=== PATIENT | female | born 1995 | race Caucasian/White ===

== ENCOUNTER 2022-10-18 08:57 | Outpatient (CLI) | payer OTHER, SELFPAY ==
[2022-10-24 04:30] LABS: FSH 3.5 mIU/mL (***); Prolactin 9.6 ng/mL (***)
[2022-10-24 09:37] LABS: Testosterone Total 32 ng/dL (2-45)
== END 2022-10-18 08:58 | disposition home or self-care (01) ==
LOC: ANHLAB 08:58
PROVIDERS: Visit Provider Student in an Organized Health Care Education/Training Program
DX: N91.1 Secondary amenorrhea (principal)
CPT/HCPCS: 36415; 83001; 84146; 84403; 84443

== ENCOUNTER 2023-04-12 10:44 | Outpatient (CLI) | payer OTHER, SELFPAY ==
[2023-04-12 11:31] LABS: Basophils Percent Auto 0.6 % (0.2-1.2); Eosinophils Absolute Auto 0.1 K/mm3 (0-0.3); Eosinophils Percent Auto 0.9 % (0-4.4); Hematocrit 42.3 % (37.0-47.0); Hemoglobin 14.5 g/dL (12.0-15.0); Immature Granulocyte Absolute 0.01 K/mm3 (0.00-0.031); Immature Granulocyte Percent A 0.2 % (0-0.5); Lymphocytes Percent Auto 24.5 % (18.3-44.2); Mean Corpuscular HGB Conc 34.3 g/dl (32-36); Mean Corpuscular Hemoglobin 30.9 pg (26-34); Mean Platelet Volume 10.9 fl (7.4-10.4); Monocytes Absolute Auto 0.3 K/mm3 (0.1-0.6); Monocytes Percent Auto 4.3 % (2.6-8.5); Neutrophils Absolute Auto 4.5 K/mm3 (1.3-6.7); Neutrophils Percent Auto 69.5 % (45.5-73.1); Platelet Count Result 210 k/mm3 (150-375); Red Cell Distribution Width 11.9 % (11.5-14.5); White Blood Count 6.5 K/mm3 (4.5-10.0)
[2023-04-12 12:03] LABS: Beta HCG Quantitative 222.86 mIU/ML
[2023-04-12 12:27] LABS: HIV 1/2 Ab P24 Ag Result Negative (Negative)
[2023-04-12 12:38] LABS: Hepatitis B Surface Antigen Negative (Negative); Rubella IgG Antibody 15.5 IU/ML
[2023-04-13 06:41] LABS: Rapid Plasma Reagin Non-Reactive (NonReactive)
[2023-04-18 18:57] LABS: CMV IgG Antibody <0.60 U/mL (<0.60)
== END 2023-04-12 10:45 | disposition home or self-care (01) ==
PROVIDERS: Visit Provider Student in an Organized Health Care Education/Training Program
DX: N94.89 Other specified conditions associated with female genital organs and menstrual cycle (principal)
CPT/HCPCS: 36415; 84702; 85025; 86592; 86644; 86703; 86747; 86762; 86787; 86850; 86900; 86901; 87086; 87340; G0432

== ENCOUNTER 2023-09-27 07:40 | Outpatient (CLI) | payer OTHER, SELFPAY ==
[2023-09-27 09:05] LABS: Hematocrit 38.5 % (37.0-47.0); Hemoglobin 12.5 g/dL (12.0-15.0); Mean Corpuscular HGB Conc 32.5 g/dl (32-36); Mean Corpuscular Hemoglobin 30.8 pg (26-34); Mean Corpuscular Volume 94.8 fl (80-100); Mean Platelet Volume 10.8 fl (7.4-10.4); Platelet Count Result 160 k/mm3 (150-375); Red Blood Count 4.06 M/mm3 (4.2-5.4); White Blood Count 9.7 K/mm3 (4.5-10.0)
[2023-09-27 09:08] LABS: Glucose 1 Hour PP 50gm Dose 157 mg/dL
[2023-09-27 09:51] LABS: HIV 1/2 Ab P24 Ag Result Negative (Negative)
== END 2023-09-27 07:41 | disposition home or self-care (01) ==
LOC: ANHLAB 07:42
PROVIDERS: PCP Family Medicine; Visit Provider Student in an Organized Health Care Education/Training Program
DX: Z34.90 Encounter for supervision of normal pregnancy, unspecified, unspecified trimester (principal)
CPT/HCPCS: 36415; 82947; 85027; 86703; G0432

== ENCOUNTER → 2023-11-08 15:20 | Outpatient (CLI) | payer OTHER, SELFPAY ==
--- NOTE | ~2023-11-08 | US_ITS ---
EXAMINATION: US OB follow up DATE: 11/08/2023 15:46 INDICATION: Encounter for supervision of normal . TECHNIQUE: Real-time ultrasound of the pelvis was performed. COMPARISON: Ultrasound 07/31/2023, 05/01/2023 FINDINGS: There is a single living fetus in vertex presentation. The placenta is anterior, greater than 5 cm f rom the cervix. heart rate is 131 beats per minute (bpm). The amniotic fluid index is 10.5 cm, which is normal. The following biometric data were obtained: Biparietal diameter (BPD): 8.6 cm; head circumference (HC): 31.4 cm; abdominal circumference (AC): 31 .2 cm; femur length (FL): 6.8 cm. These measurements are concordant. Estimated weight is 2593 g +/- 389 g, which correlates with the 76th percentile when 12/20/23 is used as estimated date of delivery. As single measurements, these parameters are each equal to the following estimated gestational ages: BPD: 34 weeks 4 days. HC: 35 weeks 1 days. AC: 35 weeks 1 days. FL: 35 weeks 1 days. estimated gestational age based solely on measurements from this exam is 35 weeks 0 days +/- 2 weeks 3 days. IMPRESSION: 1. Single living fetus in vertex presentation. 2. Estimated weight is 2593 g +/- 389 g, which correlates with the 76th percentile when 4 is used as estimated date of delivery. Reviewed, dictated and finalized at location A. [employer] IMPRESSION: 1. Single living fetus in vertex presentation. 2. Estimated weight is 2593 g +/- 389 g, which correlates with the 76th percentile when 12/20/23 is used as estimated date of delivery.
== END ==
PROVIDERS: PCP Family Medicine; Visit Provider Student in an Organized Health Care Education/Training Program
DX: Z34.90 Encounter for supervision of normal pregnancy, unspecified, unspecified trimester (principal)
CPT/HCPCS: 76816

== ENCOUNTER 2023-12-23 09:25 | Outpatient (RCR) | payer OTHER, SELFPAY ==
[2023-12-20 10:06] VITALS: BP 133/86; PULSE 85
--- NOTE | 2023-12-20 11:24 | PC.NURSE ---
Dr. Parish notified of NST, VS, and ultrasound results. Okay to discharge
--- NOTE | ~2023-12-23 | US_ITS ---
EXAMINATION: US OB follow up w [facility] DATE: 12/20/2023 11:14 INDICATION: Postdates. TECHNIQUE: Real-time pelvic ultrasound was performed. COMPARISON: Ultrasound 11/08/2023 FINDINGS: There is a single living fetus in vertex presentation. The placenta is anterior. heart rate is 128 beats per minute (bpm). The deepest vertical pocket is 5.8 cm. Biophysical profile performed by the technologist: breathing (30 sec sustained breathing in 30 minutes): 2 out of 2 movement (3 gross body movements in 30 minutes): 2 out of 2 tone (one episode of nxrtjsm-[id number]-nczccpq limb movement): 2 out of 2 Amniotic fluid pocket (2 cm): 2 out of 2 Total score: 8 out of 8 IMPRESSION: 1. Single living fetus in vertex presentation. 2. Biophysical profile 8 out of 8. Reviewed, dictated and finalized at location A.
[2023-12-23 10:05] VITALS: BP 139/89; PULSE 88
--- NOTE | 2023-12-23 10:07 | PC.NURSE ---
Dr Parish informed of elevated BP's, Orders for lab work.
[2023-12-23 10:25] LABS: Basophils Percent Auto 0.4 % (0.2-1.2); Eosinophils Percent Auto 0.4 % (0-4.4); Hemoglobin 12.9 g/dL (12.0-15.0); Immature Granulocyte Absolute 0.07 K/mm3 (0.00-0.031); Immature Granulocyte Percent A 0.7 % (0-0.5); Lymphocytes Absolute Auto 1.15 K/mm3 (0.9-3.2); Lymphocytes Percent Auto 11.4 % (18.3-44.2); Mean Corpuscular HGB Conc 33.1 g/dl (32-36); Mean Corpuscular Hemoglobin 29.7 pg (26-34); Mean Corpuscular Volume 89.7 fl (80-100); Monocytes Absolute Auto 0.4 K/mm3 (0.1-0.6); Monocytes Percent Auto 3.6 % (2.6-8.5); Neutrophils Absolute Auto 8.5 K/mm3 (1.3-6.7); Neutrophils Percent Auto 83.5 % (45.5-73.1); Platelet Count Result 160 k/mm3 (150-375); Red Blood Count 4.35 M/mm3 (4.2-5.4); Red Cell Distribution Width 13.1 % (11.5-14.5); White Blood Count 10.1 K/mm3 (4.5-10.0)
[2023-12-23 10:32] LABS: Appearance Urine Clear (Clear); Bacteria Urine Rare /hpf; Bilirubin Urine Negative (Negative); Blood Urine Negative (Negative); Color Urine Yellow (Yellow); Glucose Urine UA Negative (Negative); Ketones Urine Negative (Negative); Leukocyte Esterase Ur 2+ LEU/UL (Negative); Nitrate Urine Negative (Negative); Non Pathogenic Casts 0-2; Protein Urine Negative (Negative); RBC Urine 0-2 /hpf (0-2); Specific Grav Ur 1.005 (1.001-1.035); Squamous Epithelial Cell Urine Few /hpf (Few); Urobilinogen Urine 0.2 mg/dL (<2.0); pH Urine 6.5 (5.0-9.0)
[2023-12-23 10:37] LABS: Alanine Aminotransferase 16 U/L (6-35); Albumin Level 3.8 g/dL (3.5-5.1); Alkaline Phosphatase 146 U/L (38-126); Anion Gap 5 mmol/L (4-12); Aspartate Amino Transferase 25 U/L (14-36); Bilirubin,Total 1.2 mg/dL (0.2-1.3); Blood Urea Nitrogen 11 mg/dL (7-17); Calcium 8.9 mg/dL (8.4-10.2); Carbon Dioxide 23 mmol/L (22-30); Chloride 105 mmol/L (98-107); Estimated Glomerular Filt Rate > 60; Glucose 94 mg/dL (65-110); Sodium 133 mmol/L (137-145); Uric Acid 3.9 mg/dL (2.5-7.5)
[2023-12-23 10:41] LABS: Creatinine Urine 24.9 mg/dL; Total Protein Urine Random 13 mg/dL; Ur Ttl Prot Creatinine Ratio 0.52 mg/mg (0-0.20)
--- NOTE | 2023-12-23 10:45 | PC.NURSE ---
Dr Parish informed of [facility] labs, Orders for discharge and set up IOL for tomorrow 12/23/23 at 1600.
[2023-12-23 11:02] LABS: Add Urine Microscopic? YES
== END 2023-12-23 10:53 | disposition home or self-care (01) ==
LOC: ANHOBOP 09:25
PROVIDERS: PCP Family Medicine; Visit Provider Student in an Organized Health Care Education/Training Program
DX: N94.89 Other specified conditions associated with female genital organs and menstrual cycle (principal)
CPT/HCPCS: 36415; 59025; 76816; 76819; 80053; 81001; 82570; 84156; 84550; 85025; 87086

== ENCOUNTER 2023-12-24 16:00 | Inpatient (IN) | payer OTHER, SELFPAY ==
[2023-12-24] VITALS (8 sets, daily range): BP systolic 132–141; BP diastolic 82–92; PULSE 76–84; TEMP 36.6; BMI 21.9
[2023-12-24 17:14] LABS: Basophils Percent Auto 0.2 % (0.2-1.2); Eosinophils Percent Auto 0.2 % (0-4.4); Hematocrit 36.3 % (37.0-47.0); Hemoglobin 12.4 g/dL (12.0-15.0); Immature Granulocyte Absolute 0.08 K/mm3 (0.00-0.031); Immature Granulocyte Percent A 0.6 % (0-0.5); Lymphocytes Absolute Auto 1.51 K/mm3 (0.9-3.2); Mean Corpuscular HGB Conc 34.2 g/dl (32-36); Mean Corpuscular Hemoglobin 29.9 pg (26-34); Mean Corpuscular Volume 87.5 fl (80-100); Mean Platelet Volume 12.3 fl (7.4-10.4); Monocytes Absolute Auto 0.6 K/mm3 (0.1-0.6); Monocytes Percent Auto 4.5 % (2.6-8.5); Neutrophils Absolute Auto 10.4 K/mm3 (1.3-6.7); Neutrophils Percent Auto 82.5 % (45.5-73.1); Platelet Count Result 162 k/mm3 (150-375); Red Blood Count 4.15 M/mm3 (4.2-5.4); Red Cell Distribution Width 13.1 % (11.5-14.5); White Blood Count 12.6 K/mm3 (4.5-10.0)
[2023-12-24 17:17] LABS: Alanine Aminotransferase 16 U/L (6-35); Albumin Level 3.5 g/dL (3.5-5.1); Alkaline Phosphatase 148 U/L (38-126); Anion Gap 6 mmol/L (4-12); Aspartate Amino Transferase 25 U/L (14-36); Bilirubin,Total 1.1 mg/dL (0.2-1.3); Blood Urea Nitrogen 13 mg/dL (7-17); Calcium 8.9 mg/dL (8.4-10.2); Carbon Dioxide 18 mmol/L (22-30); Chloride 108 mmol/L (98-107); Estimated CRCL calculation 118 ml/min; Estimated Glomerular Filt Rate > 60; Glucose 82 mg/dL (65-110); Potassium 3.7 mmol/L (3.4-5.0); Sodium 132 mmol/L (137-145)
--- NOTE | 2023-12-24 20:10 | WPDANESEPP ---
Anes - Eval Pre Procedure Procedure: Labor epidural Date/Time: 12/24/23 20:10 Surgeon: Марина Preop Diagnosis: Labor pain Pre Op Diagnosis: Induction of Labor Patient Data Age: 28 Gender: F Height: 1.63 m Weight: 58 kg Last Vital Signs Pulse 81 12/24/23 17:15 BP 139/91 H 12/24/23 17:15 O2 Del Method Room Air 12/24/23 17:13 Allergies Allergy/AdvReac Type Severity Reaction Status Date / Time No Known Allergies Allergy Verified 12/24/23 08:23 Home Medications Medication Instructions Recorded Confirmed Type famotidine 10 mg tablet (Pepcid AC) 10 mg PO DAILY PRN Heartburn 07/12/23 12/24/23 History vits no.126-ferrous fum 1 tablet PO DAILY 08/16/23 12/24/23 History 28 mg iron-folic acid 800 mcg tablet (Classic ) Laboratory Tests 12/24/23 16:57 WBC 12.6 H K/mm3 (4.5-10.0) RBC 4.15 L M/mm3 (4.2-5.4) Hgb 12.4 g/dL (12.0-15.0) Hct 36.3 L % (37.0-47.0) MCV 87.5 fl (80-100) MCH 29.9 pg (26-34) MCHC 34.2 g/dl (32-36) RDW 13.1 % (11.5-14.5) Plt Count 162 k/mm3 (150-375) MPV 12.3 H fl (7.4-10.4) Immature Gran % (Auto) 0.6 H % (0-0.5) Neut % (Auto) 82.5 H % (45.5-73.1) Lymph % (Auto) 12.0 L % (18.3-44.2) Brule % (Auto) 4.5 % (2.6-8.5) Eos % (Auto) 0.2 % (0-4.4) Baso % (Auto) 0.2 % (0.2-1.2) Lymph # (Auto) 1.51 K/mm3 (0.9-3.2) Brule # (Auto) 0.6 K/mm3 (0.1-0.6) Eos # (Auto) 0.0 K/mm3 (0-0.3) Baso # (Auto) 0.0 K/mm3 (0.0-0.1) Abs Immat Gran (auto) 0.08 H K/mm3 (0.00-0.031) Absolute Neuts (auto) 10.4 H K/mm3 (1.3-6.7) Absolute Nucleated RBC 0.000 K/mm3 (0.0-0.012) Nucleated RBC % 0.0 % (0.0-0.2) Sodium 132 L mmol/L (137-145) Potassium 3.7 mmol/L (3.4-5.0) Chloride 108 H mmol/L (98-107) Carbon Dioxide 18 L mmol/L (22-30) Anion Gap 6 mmol/L (4-12) BUN 13 mg/dL (7-17) Creatinine 0.50 L mg/dL (0.7-1.0) Estim Creat Clear Calc 118 ml/min Estimated GFR > 60 (59 - ) Glucose 82 mg/dL (65-110) Calcium 8.9 mg/dL (8.4-10.2) Total Bilirubin 1.1 mg/dL (0.2-1.3) AST 25 U/L (14-36) ALT 16 U/L (6-35) Alkaline Phosphatase 148 H U/L (38-126) Total Protein 7.0 g/dL (6.3-8.2) Albumin 3.5 g/dL (3.5-5.1) RPR Pending Blood Type A Positive Antibody Screen Negative Patient hx anesthesia problems: none Family hx anesthesia problems: none Results Review: All pre-operative results and documents have been reviewed as part of the pre-operative evaluation. [facility] Past Medical History Medical History Suppression of menses Surgical History Surgical History H/O wisdom tooth extraction Family History Family History Mother Breast cancer, Onset Age: 40 Father Acute myocardial infarction Other Renal cancer Skin cancer Social History Social History Smoking status: Never smoker Second hand tobacco smoke exposure: No Alcohol intake: current Alcohol use details: socially Substance use: never Substance use type: does not use Do You Feel Safe in your Home?: Yes Lack of Transportation: No Lack of Food: Never True Current Housing: I Have Housing Concerned About Future Housing: No Difficulty Paying Gas/Electric Bills: No Difficulty Paying for Meds: No Currently Unemployed: No Education: Don't Know Difficulty w/ Childcare or Family Care: No Living arrangements: with family Occupation/Education: occupation Additional occupation/education comments: dental hygienist Gender identity (if verbalized by the patient): Female Sexual Orientation (if Verbalized by the Patient)
[2023-12-24] MEDS: LACTATED RINGERS 1,000 ML 125 ML IV CONT (21:23)
[2023-12-24] MEDS: AMPICILLIN 1 GM/NS 50 ML 1 GM/50 ML BAG IVPB (22:10)
[2023-12-24] MEDS: OXYTOCIN 30 UNITS/NS 500 ML 30 UNITS/500 ML BAG IV CONT (22:40)
[2023-12-25] VITALS (210 sets, daily range): BP systolic 105–159; BP diastolic 65–109; PULSE 39–160; RESP 16–18; TEMP 36.8–37.3; O2SAT 82–100
[2023-12-25] MEDS: AMPICILLIN 2 GM/NS 100 ML 2 GM/100 ML BAG IVPB (01:48)
[2023-12-25] MEDS: LACTATED RINGERS 1,000 ML 125 ML IV CONT ×2 (02:19→05:12)
--- NOTE | 2023-12-25 03:59 | P.PNAN_ITS ---
Anes - Eval Final PreProcedure Day of Procedure 12/25/23 03:29 Patient weight: normal Heart: regular rate and rhythm Lungs: clear to auscultation Airway: Mallampati scale class II Neurological: alert and oriented ASA classification: II Anesthetic plan: proceed Anesthesia type and monitoring: regional epidural and standard monitoring Results Review: All pre-operative results and documents have been reviewed as part of the pre- operative evaluation. Informed Consent: The patient's anesthetic plan and its attendant risks and benefits were discussed with the patient/family/POA. Questions were solicited and answers provided to the satisfaction of the patient/family/POA.
--- NOTE | 2023-12-25 04:00 | WPDANESEPN ---
Anes - Epidural Procedure Note Date/Time: 12/25/23 04:00 Consent: I have discussed with the patient/family/POA, the placement of an epidural catheter and the use of epidural narcotic/local anesthetic for labor analgesia and/or postoperative pain management, including associated potential risks, benefits, complications and side effects. I have discussed alternative methods of labor analgesia and/or postoperative pain management. The patient/family/POA, understand(s) and wish(es) to proceed with epidural narcotic/local anesthetic for labor analgesia and/or postoperative pain management. Time-Out: A pre-procedural Time-Out was completed immediately before starting the procedure and confirmed: Patient Identification, Site, Procedure, Patient Position and the Availability of Requisite Equipment. Clinical Indications: Labor pain Epidural Insertion Note Patient position: sitting Skin prep: chlorhexidine and sterile drape Needle: 18g Tuohy-Schliff Catheter: 20g Unstyleted Technique: Loss of resistance. Level of insertion: L3/4 Catheter skin loki (cm): 10 Length in epidural space (cm): 5 Skin anesthesia: lidocaine 1% Test dose: 1.5% Lidocaine with 1:[id number] Epi, negative for subarachnoid Inj and negative for intravascular Inj Time of test dose: 03:54 Observations: tolerated well Complications: none
[2023-12-25] MEDS: AMPICILLIN 1 GM/NS 50 ML 1 GM/50 ML BAG IVPB ×2 (05:47→10:16)
--- NOTE | 2023-12-25 07:13 | WPDHPUPDATE1 ---
History and Physical Update Update Date/Time: 12/25/23 07:13 28 yo G1 at 40w4d who presents for IOL. Pt has had occasional elevated blood pressures. PIH labs showed an elevated UPCR. She denies any preeclampsia symptoms. BP have been normotensive since. History and Physical has been reviewed, including an updated exam of the patient. There are NO changes in the patient's condition. Risks, benefits, and alternatives have been discussed and questions answered. Patient agrees to proceed with procedure. A/P: admit to L&D routine admission orders Rh+ GBS+, will start abx in labor plan for pitocin IOL pt may have epidural PRN continuous EFM
--- NOTE | 2023-12-25 09:27 | ADMGEN ---
This patient, Daylin Barragan, was admitted to Labor/Delivery/Recovery 109-00. Patient/family oriented to hospital policies and general routines including ID bracelet, bed and alarms, visiting hours, pain management, procedures, bathroom and other care routines, personal items, smoking policy, room service/diet, and visiting hours. Information on how to activate the Rapid Response Team has been discussed. Patient/Family are encouraged to report perceived risks to care and to ask questions if they do not understand what they are told or what they should do.
[2023-12-25] MEDS: ONDANSETRON INJ 4 MG/2 ML VIAL IV PUSH (11:25)
--- NOTE | 2023-12-25 13:05 | PM.OBPRVD ---
OB - Vaginal Delivery Note Procedure Delivery date: 12/25/23 Induction method: Per Pitocin Protocol Delivery monitor: External FHT and External Uterine Route of delivery: Episiotomy description: None Laceration Description: Perineal - 1st Degree and Labial (bilateral ) Delivery repair: vicryl Specimen: No Quantitative Blood Loss (ml): 200 Anesthesia type: Epidural Disposition: PACU Complications: No immediate complications Narrative: Patient pushed for a spontaneous vaginal delivery. The fetus was delivered atraumatically and placed on the maternal abdomen. The cord was clamped and cut after 1 minute of life. The cord was double clamped and cut and a segment of cord was collected for cord gases. Cord blood was collected for blood type and Coomb's testing. The placenta delivered spontaneously and was noted to be intact. The perineum was inspected and a 1st degree perineal laceration and bilateral labial lacerations were noted. The lacerations were repaired with 3-0 vircyl in a running fashion. The uterus was firm and good hemostasis was noted. Baby Date of : 12/25/23 Time of : 12:40 Weeks of gestation at delivery: 40 gender: Female Weight (pounds): 8 Weight (ounces): 4 presentation: vertex position: Right Occiput Anterior Placenta delivery description: Spontaneous Cord Vessel Description: 3 Vessels score one minute: 8 score five minutes: 9 AMG Delivery Billing Delivery Delivery: Delivery Charge
[2023-12-25] MEDS: OXYTOCIN 30 UNITS/NS 500 ML 30 UNITS/500 ML BAG 125 UNITS IV CONT (13:18)
[2023-12-25 13:52] LABS: Rapid Plasma Reagin Non-Reactive (NonReactive)
[2023-12-25] MEDS: BENZOCAINE 20% AER SPR (*SP) 56 GM CAN 1 SPRAY TOPICAL (15:24)
[2023-12-25] MEDS: WITCH HAZEL 40 PADS 1 PAD TOPICAL (15:24)
--- NOTE | 2023-12-25 15:45 | OBPPTRN ---
Patient transferred to post room #280 via wheelchair. Support person present. Oriented to unit, room, information board, rooming in, admission packet and security measures. Patient verbalizes understanding.
[2023-12-25] MEDS: IBUPROFEN 600 MG TABLET PO ×2 (15:47→23:45)
[2023-12-25] MEDS: DOCUSATE SODIUM 100 MG CAPSULE PO (16:44)
[2023-12-26 04:20] VITALS: BP 125/86; PULSE 85
[2023-12-26 04:46] LABS: Hematocrit 32.9 % (37.0-47.0); Hemoglobin 10.7 g/dL (12.0-15.0)
--- NOTE | 2023-12-26 07:15 | PM.OBDSVD ---
DS: Admitting Diagnosis Discharge Date 12/26/23 Admitting Diagnosis intrauterine at term preeclampsia without severe features DS: Discharge Diagnosis Discharge Diagnosis (1) Normal vaginal delivery: Code(s): O80 - Encounter for full-term uncomplicated delivery Status: Acute OB - DS: Summary OB Procedures : None OB Procedures Intrapartum: Spontaneous Vag Delivery OB Procedures: : None Peripartum Data Laceration Description: Perineal - 1st Degree and Labial (bilateral ) Episiotomy description: None Status at Discharge Functional status at discharge: independent ambulation Overall status at discharge: patient is back to baseline Time Spent with Patient Time attestation: Total time spent providing and/or coordinating discharge services: Time spent: Less than 30 minutes Exam Const: General: comfortable and no acute distress Resp: Effort & Inspection: normal respiratory effort Auscultation: clear to auscultation bilaterally Cardio: Rate: regular rate GI: GI Palp: Yes Soft to palpation Auscultation: normal bowel sounds Other: Fundus firm below umbilicus Psych: Appearance: grossly normal Mental Status: mental status grossly normal Affect: normal affect DS: Data Data Completed and Pending Labs on day of discharge: Labs from last 24 hours 12/26/23 12/24/23 04:21 16:57 Hgb 10.7 L Hct 32.9 L RPR Non-reactive Discharge Plan Discharge Discharging Clinician: Lars Parish Patient Disposition: Home, Self-Care Activity: as tolerated and pelvic rest Diet: regular Patient Instructions: Antibiotic Form, Vaginal Delivery (DC) Stand Alone Forms: General Discharge Information Follow-up/Referrals: Lars Parish MD [Physician] - Discharge Medications: New acetaminophen 500 mg tablet 500 mg PO Q6H PRN (Reason: pain) Qty: 30 0RF ibuprofen 600 mg tablet 600 mg PO Q6H PRN (Reason: pain) Qty: 30 0RF Continued famotidine [Pepcid AC] 10 mg tablet 10 mg PO DAILY PRN (Reason: Heartburn) Classic 28 mg iron- 800 mcg tablet 1 tablet PO DAILY Date of admission: 12/24/23 16:00 Primary Care Provider: Venkat,Hollie Mittal Admitting Provider: Lars Parish Attending physician on admission: Lars Parish Condition: Stable
[2023-12-26] MEDS: IBUPROFEN 600 MG TABLET PO (07:41)
[2023-12-26 08:04] VITALS: BP 125/84; PULSE 82; RESP 16; TEMP 37.1; O2SAT 98
--- NOTE | 2023-12-26 08:38 | WPDANLDPN2 ---
Anes-Prog Note L&D Date/Time: 12/26/23 08:38 Comfortable throughout: labor and delivery Neuraxial method: epidural Epidural/Spinal procedure site: clean & non-tender Neuro status: Neuro function grossly intact. Cardiovascular status: normal Respiratory status: normal Airway patency: baseline Mental status: baseline Post-Op hydration status: normal Vital Signs: Last Vital Signs Temp 37.1 C 12/26/23 08:04 Pulse 82 12/26/23 08:04 Resp 16 12/26/23 08:04 BP 125/84 12/26/23 08:04 Pulse Ox 98 12/26/23 08:04 O2 Del Method Room Air 12/25/23 19:30 Pain score (VAS): 2/10 I/O: Intake & Output 12/25/23 12/26/23 12/26/23 23:59 07:59 15:59 Intake Total 900 1100 Output Total 900 500 Balance 0 600 Post-procedural complaints: none Patient feedback: Patient satisfied with anesthetic care.
[2023-12-26] MEDS: DOCUSATE SODIUM 100 MG CAPSULE PO (10:23)
[2023-12-26] MEDS: MULTIVIT/MIN/PREN/FOL AC/IRON TABLET 1 TAB PO (10:23)
[2023-12-26] MEDS: TETANUS,DIPHTHERIA,AC PERTUSSIS ADULT (0.5 ML) BOOSTRIX IM (10:24)
--- NOTE | 2023-12-26 11:29 | PC.NURSE ---
[id number] [id number] Consulted with patient to assess needs related to . Discussed with mother her successes, concerns and any questions she has. We reviewed working with the infant, supporting breast, protecting her nipples with an optimal deep latch, good positioning, and good hand washing. Infant has a tongue that forks when lifted. Encouraged understanding the benefits of skin to skin, responding to feeding cues, frequencies of feeding 8-12 times in 24 hours (approximately 2-3 hours), duration of feedings, milk production, hand expression (multiple large drops of colostrum expressed), intake/output feeding sheet and signs of adequate intake encouraging swallowing at the breast. Reviewed positioning and alignment, supporting breast, off-centered (asymmetrical latch) and leading with the chin with big, open, wide gape. latched optimally to the right, then left breast in football, then cross cradle position. Education given to the mother of how to visualize the suckling (with good rocking jaw motion) swallows (dropping of the lower jaw) and how to listen for drinking at the breast (the ka sound) which is rare and visualized in the first few sucks after hand expressing the milk to be readily available at the latch. The infant was not able to maintain latch and doesn't cause discomfort to mother. Nipples are flattened after detaches. The latch will look appropriate with nice rounded cheek line at times without good rocking jaw motion, then on closer assessment the nipple is seen at the edge of the lips. Nipple care reviewed with optimal latch, good positioning and using clean hands when touching her breast. Resources used to facilitate learning were used from the visual handouts/ tool/mom and baby guide. Mother voiced understanding of the education shared, to call for assistance if the does not latch or if there is discomfort with . Reported to the Primary RN. [id number] Breast pump provided due to ineffective . Instructions given on cleaning, care, usage, that there should be no pain, pumping schedule for milk production, collection, and storage of human milk. Patient was assessed for correct placement, flange size, to pump for comfort and nipple stretching/stimulation for adequate milk production every 3 hours (8 times in 24 hours) 1-2 times at night. Mother voiced understanding of the education shared along with mom/baby guide and the pump measurement, flange fit handout for additional resource information. The 6+mls of first milk was stored in syringes at bedside for the next feeding. We discussed options for feeding infant, risks, benefits, protecting the milk supply, having the dentist look at the tongue along with resources for outpatient care using a business card, the feeding sheet and the mom/baby guide. Parents voiced understanding of the information. Reported to the Primary RN.
[2023-12-26 12:23] VITALS: BP 131/79; PULSE 91; RESP 18; TEMP 37.2; O2SAT 99
--- NOTE | 2023-12-26 13:23 | PC.NURSE ---
Patient viewed the discharge video Mother & Baby Care, The First Two Weeks . Patient was given the opportunity and encouraged to ask questions. Patient verbalized understanding of information shared and has been given the mother/baby guide for home reference.
[2023-12-27 14:51] VITALS: BP 128/84; PULSE 74; RESP 18; TEMP 37; O2SAT 100
== END 2023-12-26 15:05 | disposition home or self-care (01) | DRG 807 ==
LOC: ANHLDR 16:09 → ANHOB2 12-25 15:52
PROVIDERS: Admitting Provider Student in an Organized Health Care Education/Training Program; PCP Family Medicine; Visit Provider Student in an Organized Health Care Education/Training Program
DX: O99.824 Streptococcus B carrier state complicating childbirth (principal); Z37.0 Single live birth; O70.0 First degree perineal laceration during delivery; O14.04 Mild to moderate pre-eclampsia, complicating childbirth; Z3A.40 40 weeks gestation of pregnancy
CPT/HCPCS: 36415; 59025; 80053; 81001; 82570; 84156; 84550; 85014; 85018; 85025; 86592; 86850; 86900; 86901; 87086; 90715; A9270; J0290; J2405; J2590; J2795; J7120